=== PATIENT | male | born 1940 | race Caucasian/White ===

== ENCOUNTER → 2019-07-17 10:38 | Outpatient (CLI) | payer MEDICARE, BC | END | disposition home or self-care (01) | LOC: D.HCCARDIO 10:30 | PROVIDERS: ATTEND Internal Medicine Cardiovascular Disease | DX: I20.9 Angina pectoris, unspecified (principal) ==

== ENCOUNTER 2019-08-06 07:27 | Outpatient (CLI) | payer MEDICARE, BC ==
[~2019-08-06] VITALS: Ht 177.8 cm; Wt 94.5 kg
--- NOTE | ~2019-08-06 | HEMODYNAMI ---
PATIENT:MASOUD XIONG MEDICAL RECORD: [id number] : 36 LOCATION:[facility] ADMISSION DATE: 08/06/19 Generatedon:08/06/201910:33 Patient name: MASOUD XIONG Patient #: [id number] SSN: [id number] : 1940 Date of study: 08/06/2019 Page: Of Hemodynamic Procedure Report Patient Data Patient Demographics Procedure consent was obtained First Name: MASOUD Gender: Male Last Name: INGA : 1940 Middle Initial: C Age: 79 year(s) Patient #: [id number] Race: SSN: [id number] Additional ID: [id number] Contact details Address: [address] [place] [address] State: [place] City: [place] Zip code: [address] Past Medical History Performed procedures and imaging results Date Procedure Procedure Results Comments 07/17/2019 Stress testing Positive->Intermediate with SPECT MPI risk Allergies: No known allergies Admission Admission Data Admission Date: 08/06/2019 Admission Time: 7:27 Admit Source: Other Insurance Payor: Private health insurance, Medicare [facility] #: [id number] Height (in.): 69.69 BSA: 2.11 (m2) Height (cm.): 177 BMI: 30 (kg/m2) Weight (lbs.): 207.24 Weight (kg.): 94 Lab Results Lab Result Date: 08/06/2019 Lab Result Time: 7:55 Biochemistry Name Units Result Min Max BUN mg/dl 30 --(----)-* 7 18 Creatinine mg/dl 0.9 --(-*--)-- 0.6 1.3 CBC Name Units Result Min Max Hematocrit % 45 --(*---)-- 42 54 Hemoglobin g/dl 15.1 --(-*--)-- 13.5 17.5 Procedure Procedure Types Cath Procedure Diagnostic Procedure [facility] w/Coronaries Aortic Root Angiography Sedation Charges Moderate Sedation up to 15 minutes Procedure Description Procedure Date Procedure Date: 08/06/2019 Procedure Start Time: 10:08 Procedure End Time: 10:30 Procedure Staff Name Function Jus Howard MD Performing Physician Rambo Valencia RT Monitor Ana Kennedy RT Scrub Gabriel Mancuso RN Nurse Procedure Data Cath Procedure Fluoroscopy Diagnostic fluoroscopy Total fluoroscopy Time: 4.6 time: 4.6 min min Diagnostic fluoroscopy Total fluoroscopy dose: dose: 1006 mGy 1006 mGy Contrast Material Contrast Material Type Amount (ml) Isovue 300 87 Entry Location Entry Primary Successful Side Size Upsize Upsize Entry Closure Fortune ccessful Closure Location (Fr) 1 (Fr) 2 (Fr) Remarks Device Remarks Radial Right 6 Fr Mechanical artery Short Compression Femoral Right 5 Fr Exoseal artery Estimated blood loss: 5 ml Diagnostic catheters Device Type Used For End Catheter Placement DIAGNOSTIC Reji 110cm Procedure 5Fr catheter ([id number]) MULTIPACK JL 4.0 5Fr Procedure catheter DIAGNOSTIC JL 5 5Fr Procedure catheter ([id number]) MULTIPACK 3DRC 5Fr Procedure catheter MULTIPACK Pigtail 5 Fr Procedure catheter Procedure Complications No complications Procedure Medications Medication Administration Route Dosage 0.9% NaCl I.V. 100 ml/hr Oxygen etCO2 Nasal cannula 2 l/min Heparin Flush Bag added to field 2 bags (1000units/500ml NS) Lidocaine 2% added to field 20 Radial Cocktail added to field 1 syringe (Verapamil 2mg/Nitro 400mcg/Heparin 1500units) Versed I.V. 2 mg Fentanyl I.V. 100 mcg Radial Cocktail I.A. 1 syringe (Verapamil 2mg/Nitro 400mcg/Heparin 1500units) Hemodynamics Rest BSA: 2.11 (m2) HGB: 15.1 (g/dl) O2 Consumption: Estimated: 225.59 (ml/min) O2 Co nsumption indexed: Estimated:106.91 (ml/min/m) Heart Rate: 51 (bpm) Pressure Samples Time Site Value (mmHg) Purpose Heart Use Rate(bpm) 10:21 LV 83/10,0 Snapshot 57 10:21 LV 116/-4,10 Snapshot 52 10:21 LV 118/-3,12 Snapshot 59 Gradients Valve Time Site Site Mean SEP/DFP Peak To Heart Use 1 2 (mmHg) (sec/min) Peak Rate (mmHg) (bpm) Aortic 10:21 LV AO 53 Snapshots Pre Cath Intra NCS Post Cath Vital Signs Time Heart Resp SPO2 etCO2 NIBP (mmHg) Rhythm Pain Sedation Rate (ipm) (%) (mmHg) Status Level (bpm) 9:40:38 53 12 99 37.4 120/76(92) NSR 0 (11) 10(A) , No pain 9:44:43 53 18 98 0 118/75(92) NSR 0 (11) 10(A) , No pain 9:48:47 55 17 97 37.4 117/73(100) NSR 0 (11) 10(A) , No pain 9:52:53 56 18 96 44.8 112/69(91) NSR 0 (11) 10(A) , No pain 9:56:54 55 17 96 36.6 115/75(92) NSR 0 (11) 10(A) , No pain 10:00:58 57 12 96 38.1 123/72(99) NSR 0 (11) 10(A) , No pain 10:05:06 56 13 96 39.6 119/69(89) NSR 0 (11) 10(A) , No pain 10:09:10 55 11 95 0 117/76(95) NSR 0 (11) 9(A) , No pain 10:13:20 55 17 92 0 103/60(91) NSR 0 (11) 9(A) , No pain 10:17:23 56 17 92 2.2 109/58(80) NSR 0 (11) 9(A) , No pain 10:21:27 57 17 93 0 114/67(96) NSR 0 (11) 9(A) , No pain 10:25:37 56 12 95 40.4 104/54(77) NSR 0 (11) 9(A) , No pain 10:29:37 52 18 96 30.6 104/55(85) NSR 0 (11) 9(A) , No pain Medications Time Medication Route Dose Verified Delivered Reason Notes Effectiveness by by 9:41:27 0.9% NaCl I.V. 100 Gabriel Gabriel Per ml/hr Bartolome Mancuso physician RN RN 9:41:35 Oxygen etCO2 2 l/min Gabriel Gabriel for low 02 Nasal Bartolome Mancuso sats cannula RN RN 9:41:46 Heparin Flush added 2 bags Gabriel Gabriel used for Bag to Lorigan Bartolome procedure (1000units/500ml field RN RN NS) 9:41:54 Lidocaine 2% added 20ml Gabriel Gabriel for local to vial Lorigan Lorigan anesthetic RN RN 9:42:04 Radial Cocktail added 1 Gabriel Gabriel used for (Verapamil to syringe Lorigan Lorigan procedure 2mg/Nitro field RN RN 400mcg/Heparin 1500units) 10:04:46 Versed I.V. 2 mg Gabriel Gabriel for sedation Bartolome Mancuso RN RN 10:04:54 Fentanyl I.V. 100 mcg Gabriel Gabriel for sedation Bartolome Mancuso RN RN 10:09:08 Radial Cocktail I.A. 1 Gabriel Jus for (Verapamil syringe Evelinaigan Howard MD vasodilation 2mg/Nitro RN 400mcg/Heparin 1500units) Procedure Log Time Note 8:57:14 Informed consent obtained and on chart 8:57:31 Procedure Status Elective Heart Cath (OP). 8:57:33 Time tracking: Regular hours (M-F 7:00 - 5:00) 8:57:36 Plan of Care:Hemodynamics will remain stable., Cardiac rhythm will remain stable., Comfort level will be maintained., Respiratory function will remain adequate., Patient/ family verbilizes understanding of procedure., Procedure tolerated without complication., Recovers from procedure without complications.. 9:03:09 Admit Source: Other 9:03:10 Insurance Payor : Private health insurance, Medicare 9:05:15 Patient Height : 69.69 inches 9:05:17 Patient Weight : 207.24 lbs 9:06:30 Lab Result : Hemoglobin 15.1 g/dl 9:06:30 Lab Result : Creatinine 0.9 mg/dl 9:06:30 Lab Result : BUN 30 mg/dl 9:06:30 Lab Result : Hematocrit 45 % 9:06:50 Diagnostic Cath Status : Elective 9:09:36 Patient allergic to No known allergies 9:12:54 ACC Patient presents with Symptoms unlikely to be ischemic CCS Anginal Class 2--Slight limitation of ordinary activity. 9:15:47 H&P Date Dictated: 07/15/2019 Within 30 days and on chart., H&P Addendum completed by physician on day of procedure. (MUST COMPLETE FOR ALL OUTPATIENTS). 9:25:03 Gabriel Mancuso RN sent for patient. Start room use. 9:33:49 Patient received from Pre/Post Procedure Room to CCL 2 Alert and oriented. Tansferred to table in Supine position. 9:33:50 Warm blankets applied, and dane hugger turned on for patient comfort. 9:33:50 Correct patient and procedure confirmed by team. 9:33:51 ECG and BP/O2 sat monitors applied to patient. 9:39:31 Vital chart was started 9:39:32 Baseline sample Acquired. 9:39:36 Rhythm: sinus bradycardia 9:39:37 Full Disclosure recording started 9:39:40 Pre-procedure instructions explained to patient. 9:39:41 Pre-op teaching completed and patient verbalized understanding. 9:39:42 Family in patients room. 9:39:44 Patient NPO since Midnight. 9:39:45 Is the patient allergic to Iodine/contrast media? No. 9:39:46 Is patient on blood thinner?No 9:41:27 0.9% NaCl 100 ml/hr I.V. was administered by Gabriel Mancuso RN; Per physician; Verbal order read back and verified. 9:41:35 Oxygen 2 l/min etCO2 Nasal cannula was administered by Gabrile Mancuso RN; for low 02 sats; Verbal order read back and verified. 9:41:46 Heparin Flush Bag (1000units/500ml NS) 2 bags added to field was administered by Gabriel Mancuso RN; used for procedure; Verbal order read back and verified. 9:41:54 Lidocaine 2% 20ml vial added to field was administered by Gabriel Mancuso RN; for local anesthetic; Verbal order read back and verified. 9:42:04 Radial Cocktail (Verapamil 2mg/Nitro 400mcg/Heparin 1500units) 1 syringe added to field was administered by Gabriel Mancuso RN; used for procedure; Verbal order read back and verified. 9:51:11 Baseline sample Acquired. 9:51:19 ACC The patient was administered the following blood thiners within the last 24 hours: None 9:51:26 Bleeding risk 3.5%%. 9:51:27 Patient diabetic? No. 9:51:30 Previous problem with sedation/anesthesia? No ? 9:51:32 Snore? Yes 9:51:33 Sleep apnea? Yes 9:51:33 Deviated septum? No 9:51:34 Opens mouth fully? Yes 9:51:35 Sticks out tongue? Yes 9:51:36 Airway obstruction? No ? 9:51:38 Dentures? No ? 9:51:42 Pre procedure: right dorsailis pedis pulse 2+ Normal; easily identifiable; not easily obliterated 9:51:44 Modified Royer's test Ulnar > 7 seconds. 9:51:45 Patient pain scale 0/10 ?. 9:51:49 IV patent on arrival in left forearm with 0.9% NaCl at [facility]. 9:51:50 Lab results completed and on chart. 9:51:57 Risk of Mortality: 3.5% 9:52:02 Risk of blood transfusion: 0.6% 9:52:08 Risk of NAINA: 5.3% 9:52:11 Right Radial & Right Groin area was prepped with chlora-prep and draped in sterile fashion 9:52:12 Alarms reviewed by R. N. 9:52:12 Sharps counted by scrub and verified by R.N. 9:52:15 Use device set Radial Dx or PCI 9:52:15 ACIST Syringe (22492) opened to sterile field. 9:52:16 Medline Cath Pack ([id number]) opened to sterile field. 9:52:16 Bag Decanter (2002S) opened to sterile field. 9:52:16 ACIST Hand Control (69038) opened to sterile field. 9:52:17 ACIST Manifold (92124) opened to sterile field. 9:52:17 Tegaderm 4 x 4 (1626W) opened to sterile field. 9:52:18 MBrace Wrist Support ([id number]) opened to sterile field. 9:52:19 NEEDLE Cook 21G 4cm Radial (X53273) opened to sterile field. 9:52:23 EMERALD Guide Wire (402-372) opened to sterile field. 9:52:24 SHEATH 6FR RAIN ([id number]) opened to sterile field. 9:52:38 Zero performed for pressure channel P1 10:03:28 Physician arrived 10:03:31 --------ALL STOP TIME OUT------ 10:03:31 Final Timeout: patient, procedure, and site verified with staff and physician. All members of the team are in agreement. 10:03:32 Right Radial & Right Groin site verified by team. 10:03:36 Fire Safety Assessment: A--An alcohol-based skin anteseptic being used preoperatively., C--Open oxygen or nitrous oxide is being used., D--An ESU, laser, or fiber-optic light is being used. 10:03:38 Physical assessment completed. ASA score P 2 - A patient with mild systemic disease as per Jus Howard MD. 10:03:49 2) 60-89 Mildly reduced kidney function, and other findings (as for stage 1) point to kidney disease. 10:04:30 Maximum allowable contrast dose (3.7 X eGFR X 0.75)238 ml. 10:04:33 Sedation plan: IV Moderate Sedation Medication:Versed, Fentanyl 10:04:46 Versed 2 mg I.V. was administered by Gabriel Mancuso RN; for sedation; Verbal order read back and verified. 10:04:54 Fentanyl 100 mcg I.V. was administered by Gabriel Mancuso RN; for sedation; Verbal order read back and verified. 10:08:32 Procedure started. 10:08:58 Local anesthetic to right radial artery with Lidocaine 2% by Jus Howard MD.INITIAL ACCESS ONLY 10:09:05 A 6 Fr Short sheath was inserted into the Right Radial artery 10:09:08 Radial Cocktail (Verapamil 2mg/Nitro 400mcg/Heparin 1500units) 1 syringe I.A. was administered by Jus Howard MD; for vasodilation; Verbal order read back and verified. 10:09:31 A DIAGNOSTIC Reji 110cm 5Fr catheter (299690) was advanced over the wire and used for Procedure. 10:13:07 Curve in aorta too torturous for catheter. Moiving to femoral approach. 10:13:09 Catheter removed. 10:13:12 Local anesthetic to right femoral artery with Lidocaine 2% by Jus Howard MD.ADDITIONAL ACCESS 10:13:18 A 5 Fr sheath was inserted into the Right Femoral artery 10:13:37 DIAGNOSTIC Multipack 5Fr catheter set ([id number]) opened to sterile field. 10:13:39 SHEATH 5FR [place] (MSX266) opened to sterile field. 10:13:56 A MULTIPACK JL 4.0 5Fr catheter was advanced over the wire and used for Procedure. 10:15:37 Catheter exchanged over wire. 10:15:51 A DIAGNOSTIC JL 5 5Fr catheter ([id number]) was advanced over the wire and used for Procedure. 10:16:05 LCA angiography performed. 10:18:22 Catheter exchanged over wire. 10:18:49 A MULTIPACK 3DRC 5Fr catheter was advanced over the wire and used for Procedure. 10:19:31 RCA angiography performed. 10:19:41 Catheter exchanged over wire. 10:19:56 A MULTIPACK Pigtail 5 Fr catheter was advanced over the wire and used for Procedure. 10:21:26 LV gram done using CARIAS 10::28 Injector settings: Ml/sec: 10, Volume: 20, 10:21:30 LV hemodynamics recorded. 10:21:34 EF : 60 % 10:22:09 Aortic Root visualized 10:26:14 Catheter removed. 10:26:21 EXOSEAL 5Fr (EX500) opened to sterile field. 10:26:24 ZEPHYR REGULAR TR BAND (478140) opened to sterile field. 10:26:35 Sheath removed intact; hemostasis achieved with Exoseal to the Right Femoral artery. 10:26:42 Sheath removed intact; hemostasis achieved with Mechanical Compression to the Right Radial artery. 10:26:43 Procedure ended.(Physican Out) 10:27:07 Fluoroscopy time 04.60 minutes. 10:27:12 Fluoroscopy dose: 1006 mGy 10:27:12 Flurop Dose total: 1006 10:27:20 Dose Area Product 12179 mGy/cm. 10:27:27 Contrast amount:Isovue 300 87ml. 10:27:29 Maximum allowable dose exceeded? No. 10:27:30 Sharps counted by scrub and verified by R.N. 10:27:32 [place] band inflated with 12cc of air. 10:27:33 Insertion/operative site no bleeding no hematoma. 10:27:33 Insertion/operative site no bleeding no hematoma. 10:27:36 Post-op/insertion site Right Femoral artery dressed using a 4 x 4 and Tegaderm. 10:28:32 Post Procedure Pulses reassessed and unchanged 10:28:34 Post-procedure physical assessment completed. ASA score P 2 - A patient with mild systemic disease as per Jus Howard MD. 10:28:36 Post procedure rhythm: unchanged. 10:28:38 Estimated blood loss: 5 ml 10:28:39 Post procedure instruction explained to patient.Patient verbalizes understanding. 10:28:40 Patient needs reinforcement of post procedure teaching. 10:28:55 Procedure type changed to Cath procedure, Diagnostic procedure, LHC, [facility] w/Coronaries, Aortic Root Angiography, Sedation Charges, Moderate Sedation up to 15 minutes 10:30:13 Procedure and supply charges have been captured, reviewed, submitted and are correct. 10:30:16 Procedure Complication : No complications 10:30:18 Vital chart was stopped 10:30:21 [facility] Findings: MVD- will discuss options w/ pt 10:30:22 Operative report dictated upon procedure completion. 10:30:24 See physician's report for complete and final results. 10:30:25 Report given to Pre/Post Procedure Room. 10:30:27 Patient transfered to Pre/Post Procedure Room with Stretcher. 10:30:30 Procedure ended. 10:30:30 Full Disclosure recording stopped 10:30:38 End room use (Document Last) 10:32:05 End room use (Document Last) Device Usage Item Name Manufacture Quantity Catalog Hospital Part Current Minima l Lot# / Number Charge Number Stock Stock Serial# Code ACIST Acist 1 48809 612813 609951 094319 20 Syringe Medical (59742) Systems Inc Medline Medline 1 [id number] 380489 94810 180013 5 Cath Pack ([id number]) Bag Microtek 1 2001S 966167 68244 302010 5 Decanter Medical Inc. () ACIST Hand Acist 1 53208 184036 820803 453905 5 Control Medical (58991) Systems Inc ACIST Acist 1 56919 831220 810269 599223 5 Manifold Medical (13979) Systems Inc Tegaderm 4 3M 1 1626W 023305 902164 832741 5 x 4 (1626W) MBrace Advanced 1 140-0250-00 591552 04914 331546 5 Wrist Vascular Support Dynamics ([id number]) NEEDLE LIQUITY Medical 1 W65205 262373 831059 771388 5 21G 4cm Radial (A17963) EMERALD Cardinal 1 502-313 051223 921802 116226 5 Guide Wire [facility] (502-455) SHEATH 6FR Cardinal 1 6893883 926354 1494166 503290 5 [facility] (4138469) DIAGNOSTIC Terumo 1 40-4245 868252 691278 000697 5 Reji 110cm 5Fr catheter (549159) DIAGNOSTIC Cardinal 1 MH6985 932072 99600 013525 30 Multipack Health 5Fr catheter set (EW1499) SHEATH 5FR Terumo 1 RAV106 475325 759966 034345 5 [place] (USN363) MULTIPACK Cardinal 1 727339 5 JL 4.0 5Fr Health catheter DIAGNOSTIC Cardinal 1 [id number] 089636 198807 370335 5 JL 5 5Fr Health catheter (982505I) MULTIPACK Cardinal 1 908955 5 3DRC 5Fr Health catheter MULTIPACK Cardinal 1 880653 5 Pigtail 5 Health Fr catheter EXOSEAL 5Fr Cardinal 1 EX500 383573 204324 952762 10 (EX500) Health ZEPHYR Cardinal 1 815560 406454 3704623 176398 5 REGULAR TR Health BAND (243157) Signature Audit [place] Stage Time Signature Unsigned Intra-Procedure 08/06/2019 Gabriel 10:32:05 SAVAGE Mancuso RN; Rambo Valencia RT(R); Jus Howard MD Signatures Performing Physician : Signature : Jus Howard MD Date : Time : Monitor : Rambo Valencia RT Signature : Date : Time : Nurse : Gabriel Mancuso Signature : RN Date : Time : [facility] [address], [place] [address]
[2019-08-06] MEDS ORDERED: ELAVIL10 MG PO (07:43)
[2019-08-06] MEDS ORDERED: PROSCAR5 MG PO (07:43)
[2019-08-06 07:59] VITALS: BP 130/88; Ht 177.8 cm; Wt 94.5 kg
[2019-08-06 08:09] LABS: BASOPHILS 0.6 % (0-2); EOSINOPHILS 6.5 % (0-7); HEMOGLOBIN 15.1 g/dL (13.5-17.5); IMMATURE GRANULOCYTES 0.2 % (0-5); LYMPHOCYTES 27.5 % (15-50); MCH 32.2 pg (26.0-34.0); MCHC 33.6 g/dL (31.0-37.0); MCV 95.9 fL (80.0-100.0); MEAN PLATELET VOLUME 10.3 fL (7.4-10.4); MONOCYTES 14.9 % (2-11); NEUTROPHILS 50.3 % (40-80); PLATELET COUNT 211 10x3/uL (130-400); RBC 4.69 10x6/uL (4.20-6.10); RDW 13.1 % (11.5-14.5); WBC 5.4 10x3/uL (4.8-10.8)
[2019-08-06 08:28] LABS: ALT (SGPT) 26 U/L (10-68); CALC OSMOLALITY 284 mosm/kg (275-300); CALCIUM 9.6 mg/dL (8.5-10.1); CARBON DIOXIDE 26.8 mmol/L (21.0-32.0); CHLORIDE - SERUM 106 mmol/L (98-107); CHOL - HDL RATIO 4.1 ratio (2.3-4.9); CHOLESTEROL, TOTAL 218 mg/dL (0-200); CREATININE - SERUM 0.9 mg/dL (0.6-1.3); GLUCOSE 101 mg/dL (74-106); HDL CHOLESTEROL 53 mg/dL (32-96); LDL CHOLESTEROL 151 mg/dL (0-100); LDL-HDL RATIO 2.8 ratio (1.5-3.5); POTASSIUM - SERUM 4.3 mmol/L (3.5-5.1); SODIUM 140 mmol/L (136-145); TRIGLYCERIDE 71 mg/dL (30-200); UREA NITROGEN 30 mg/dL (7-18); eGFR NON AFRICAN AMERICAN 86 mL/min (90-120)
--- NOTE | 2019-08-06 10:45 | NUR ---
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 MONITORS ESTAB, PT ORIENTED TO SITUATION BY NURSE. SEE ADJUNCT PROFESSOR OF ENGLISH. ALARMS ON AND C/L IN REACH.
--- NOTE | 2019-08-06 11:00 | NUR ---
R WRIST AND R GROIN SITES C/D/I, NO S/S BLEEDING. R HANDS/FEET WARM WITH PALP PULSES AND BRISK CAP REFILL. PT RESTING QUIETLY, DENIES PAIN OR NEEDS. ALARMS ON AND C/L IN REACH.
--- NOTE | 2019-08-06 11:45 | NUR ---
R GROIN AND WRIST SITES C/D/I, NO S/S BLEEDING OR HEMATOMA. HOB ELEVATED, SANDWICH TRAY AND DIET COLA PROVIDED.
--- NOTE | 2019-08-06 12:00 | NUR ---
SPOKE WITH PT TITUS JACKSON, UPDATE GIVEN, D/C INSTRUCTIONS AND FOLLOW UP APPT INFO PROVIDED. PLAN FOR PT D/C AT 4245.
--- NOTE | 2019-08-06 12:04 | NUR ---
PT ATE ALL OF SANDWICH, NO N/V. BOTH R GROIN AND R WRIST SITES C/D/I, NO S/S BLEEDING OR HEMATOMA. VSS, PT DENIES PAIN OR NEEDS.
--- NOTE | 2019-08-06 12:30 | NUR ---
R GROIN SITE SOFT, C/D/I. R WRIST SITE C/D/I - 5CC AIR REMOVED, NO S/S BLEEDING - WILL CONT CLOSE MONITORING.
--- NOTE | 2019-08-06 12:47 | NUR ---
ALL AIR REMOVED FROM Z BAND, NO S/S BLEEDING OR HEMATOMA. DR CHERRY ORDERED ECHO PRIOR TO D/C - TEASY NOTIFIED.
--- NOTE | 2019-08-06 13:11 | NUR ---
ECHO IN PROCESS.
--- NOTE | 2019-08-06 13:35 | NUR ---
ECHO DONE. R GROIN SITE AND R WRIST SITE WITH NO S/S BLEEDING OR HEMATOMA. PIV D/C'D INTACT, DSG APPLIED. PT UP TO GET DRESSED AND GO TO BR INDEPENDENTLY.
--- NOTE | 2019-08-06 13:45 | NUR ---
PT D/C'D TO PRIVATE VEHICLE WITH SONS. ALL D/C INSTRUCTIONS REVIEWED, FAMILY VERBALIZES UNDERSTANDING OF RESTRICTIONS, PRECAUTIONS AND FOLLOW UP APPT. PT HAS ALL BELONGINGS AND PAPER WORK.
== END 2019-08-06 13:45 | disposition home or self-care (01) ==
LOC: D.CATH 07:27
PROVIDERS: ATTEND Internal Medicine Cardiovascular Disease
DX: R53.83 Other fatigue (principal); I20.9 Angina pectoris, unspecified; R42 Dizziness and giddiness

== ENCOUNTER 2019-09-02 11:24 | Outpatient (CLI) | payer MEDICARE, BC ==
[~2019-09-02] VITALS: Ht 177.8 cm; Wt 93.6 kg
--- NOTE | ~2019-09-02 | HEMODYNAMI ---
PATIENT:MASOUD XIONG MEDICAL RECORD: [id number] : 36 LOCATION:[facility] ADMISSION DATE: 09/02/19 Generatedon:09/02/201915:40 Patient name: MASOUD XIONG Patient #: [id number] SSN: [id number] : 1940 Date of study: 09/02/2019 Page: Of Hemodynamic Procedure Report Patient Data Patient Demographics Procedure consent was obtained First Name: MASOUD Gender: Male Last Name: INGA : 1940 Middle Initial: C Age: 79 year(s) Patient #: [id number] Race: SSN: [id number] Additional ID: [id number] Contact details [address]: [address] [place] [address] State: [place] City: [place] Zip code: [address] Past Medical History Allergies: No known allergies Admission Admission Data Admission Date: 09/02/2019 Admission Time: 11:24 Procedure Procedure Types Cath Procedure Diagnostic Procedure LHC Sedation Charges Moderate Sedation up to 45 minutes PCI Procedure Coronary Stent Coronary Stent Initial Hemochron ACT Test Procedure Description Procedure Date Procedure Date: 09/02/2019 Procedure Start Time: 14:41 Procedure End Time: 15:37 Procedure Staff Name Function Jus Howard MD Performing Physician Kayla Ritter RT Monitor Shelley Verdugo RT Scrub Ana Kennedy RT Ore Feeder Vero Haley RN Nurse Indication Angina Procedure Data Cath Procedure Fluoroscopy Diagnostic fluoroscopy Total fluoroscopy Time: time: 13.2 min 13.2 min Diagnostic fluoroscopy Total fluoroscopy dose: dose: 1917 mGy 1917 mGy Contrast Material Contrast Material Type Amount (ml) Isovue 370 165 Entry Location Entry Primary Successful Side Size Upsize 1 Upsize Entry Closure Fortune ccessful Closure Location (Fr) (Fr) 2 (Fr) Remarks Device Remarks Femoral Right 6 Fr 6 Fr 6 Fr Exoseal artery Short Mid-Length Short Estimated blood loss: 10 ml Procedure Complications No complications Procedure Medications Medication Administration Route Dosage 0.9% NaCl I.V. 100 ml/hr Oxygen etCO2 Nasal cannula 2 l/min Lidocaine 2% added to field 20 Heparin Flush Bag added to field 2 bags (1000units/500ml NS) Versed I.V. 2 mg Fentanyl I.V. 50 mcg Fentanyl I.V. 50 mcg Heparin Bolus I.V. 9500 units Nitroglycerin IC/IA I.C. 100 mcg Nitroglycerin IC/IA I.C. 100 mcg Nitroglycerin IC/IA I.C. 100 mcg Plavix P.O. 600 mg Hemodynamics Rest Heart Rate: 54 (bpm) Snapshots Pre Cath Intra NCS Post Cath Vital Signs Time Heart Resp SPO2 etCO2 NIBP (mmHg) Rhythm Pain Sedation Rate (ipm) (%) (mmHg) Status Level (bpm) 14:27:01 52 12 99 17 136/86(99) SB 0 (11) 10(A) , No pain 14:31:17 54 13 100 34.6 132/84(101) SB 0 (11) 10(A) , No pain 14:36:14 55 13 100 34 127/78(102) SB 0 (11) 10(A) , No pain 14:40:24 56 12 100 33.9 135/89(101) SB 0 (11) 10(A) , No pain 14:44:42 54 14 100 23.3 134/80(97) SB 0 (11) 10(A) , No pain 14:48:55 55 15 100 35 131/85(101) SB 0 (11) 10(A) , No pain 14:53:03 60 15 100 38.4 121/80(95) NSR 0 (11) 9(A) , No pain 14:57:15 61 16 98 29.3 118/77(92) NSR 0 (11) 9(A) , No pain 15:01:25 60 12 99 24.1 133/82(94) NSR 0 (11) 9(A) , No pain 15:05:39 52 10 100 36.9 131/81(97) SB 0 (11) 9(A) , No pain 15:10:34 52 14 100 36.9 137/79(101) SB 0 (11) 9(A) , No pain 15:14:50 54 10 100 21.8 132/83(97) SB 0 (11) 9(A) , No pain 15:19:02 50 18 100 35.4 123/82(95) SB 0 (11) 9(A) , No pain 15:23:16 49 16 99 34.6 129/76(96) SB 0 (11) 9(A) , No pain 15:27:30 53 15 99 38.4 121/79(96) SB 0 (11) 9(A) , No pain 15:31:44 50 15 99 33.1 126/74(106) SB 0 (11) 10(A) , No pain 15:35:56 53 7 99 38.4 126/76(97) SB 0 (11) 10(A) , No pain Medications Time Medication Route Dose Verified Delivered Reason Notes Effectiveness by by 14:24:24 0.9% NaCl I.V. 100 Jus Vero used for ml/hr Lee Haley scullion chief 14:24:32 Oxygen etCO2 2 Jus Vero used for Nasal l/min Lee Haley procedure cannula RN 14:24:38 Lidocaine 2% added 20ml Jus Jus for local to vial Lee Howard MD anesthetic field 14:24:42 Heparin Flush added 2 Jus Jus used for Bag to bags Lee Howard MD procedure (1000units/500ml field NS) 14:41:09 Versed I.V. 2 mg Jus Vero for sedation Lee Haley RN 14:41:14 Fentanyl I.V. 50 Jus Vero for sedation mcg Lee Haley RN 14:47:31 Fentanyl I.V. 50 Jus Vero for sedation mcg Lee Haley RN 14:52:25 Heparin Bolus I.V. 9500 Jus Vero for verif ied units Lee Haley anticoagulation with Dr. PELON Howard 14:52:45 Nitroglycerin I.C. 100 Jus Vero for IC/IA mcg Lee Haley vasodilation RN 15:16:34 Nitroglycerin I.C. 100 Jus Vero for IC/IA mcg Lee Haley vasodilation RN 15:25:06 Nitroglycerin I.C. 100 Jus Vero for IC/IA mcg Lee Haley vasodilation RN 15:35:36 Plavix P.O. 600 Jus Vero for mg Lee Haley antiplatelet RN therapy Procedure Log Time Note 14:15:22 Ana Kennedy RT(R) sent for patient. Start room use. 14:17:16 Informed consent obtained and on chart 14:18:13 Indication : Angina 14:18:19 Time tracking: Regular hours (M-F 7:00 - 5:00) 14:18:32 Procedure Status PCI. 14:18:43 Plan of Care:Hemodynamics will remain stable., Cardiac rhythm will remain stable., Comfort level will be maintained., Respiratory function will remain adequate., Patient/ family verbilizes understanding of procedure., Procedure tolerated without complication., Recovers from procedure without complications.. 14:19:09 Patient received from Pre/Post Procedure Room to CCL 1 Alert and oriented. Tansferred to table in Supine position. 14:23:48 Warm blankets applied, and dane hugger turned on for patient comfort. 14:23:49 Correct patient and procedure confirmed by team. 14:23:50 ECG and BP/O2 sat monitors applied to patient. 14:23:51 Vital chart was started 14:23:54 Baseline sample Acquired. 14:23:58 Rhythm: sinus rhythm 14:24:01 Full Disclosure recording started 14:24:23 H&P Date Dictated: 08/06/2019 Within 30 days and on chart., H&P Addendum completed by physician on day of procedure. (MUST COMPLETE FOR ALL OUTPATIENTS). 14:24:24 Pre-procedure instructions explained to patient. 14:24:24 0.9% NaCl 100 ml/hr I.V. was administered by Vero Haley RN; used for procedure; Verbal order read back and verified. 14:24:26 Pre-op teaching completed and patient verbalized understanding. 14:24:28 Family in patients room. 14:24:30 Patient NPO since Midnight. 14:24:32 Oxygen 2 l/min etCO2 Nasal cannula was administered by Vero Haley RN; used for procedure; Verbal order read back and verified. 14:24:38 Lidocaine 2% 20ml vial added to field was administered by Jus Howard MD; for local anesthetic; Verbal order read back and verified. 14:24:39 Patient allergic to No known allergies 14:24:42 Heparin Flush Bag (1000units/500ml NS) 2 bags added to field was administered by Jus Howard MD; used for procedure; Verbal order read back and verified. 14:24:43 Is the patient allergic to Iodine/contrast media? No. 14::46 Was the patient premedicated? Yes 14:24:57 Is patient on blood thinner?No 14:25:04 Patient diabetic? No. 14:25:16 Snore? Yes 14:25:29 Sleep apnea? No 14:25:37 Dentures? No ? 14:25:44 Patient pain scale 0/10 ?. 14:: Lab results completed and on chart. 14::18 Right groin area was prepped with chlora-prep and draped in sterile fashion 14:: Alarms reviewed by R. N. 14:: Sharps counted by scrub and verified by R.N. 14:: Physician paged 14:40:24 Physician arrived 14:40:25 Final Timeout: patient, procedure, and site verified with staff and physician. All members of the team are in agreement. 14::25 --------ALL STOP TIME OUT------ 14:40:31 Right groin site verified by team. 14:40:36 Fire Safety Assessment: A--An alcohol-based skin anteseptic being used preoperatively., C--Open oxygen or nitrous oxide is being used., D--An ESU, laser, or fiber-optic light is being used. 14:40:41 Physical assessment completed. ASA score P 3 - A patient with severe systemic disease as per Jus Howard MD. 14:40:44 2) 60-89 Mildly reduced kidney function, and other findings (as for stage 1) point to kidney disease. 14:40:49 Maximum allowable contrast dose (3.7 X eGFR X 0.75)211 ml. 14:40:54 Sedation plan: IV Moderate Sedation Medication:Versed, Fentanyl 14:41:02 Use device set Femoral Dx 14:41:07 Procedure started. 14:41:09 Versed 2 mg I.V. was administered by Vero Haley RN; for sedation; Verbal order read back and verified. 14:41:12 Local anesthetic to right femoral artery with Lidocaine 2% by Jus Howard MD.INITIAL ACCESS ONLY 14:41:14 Fentanyl 50 mcg I.V. was administered by Vero Haley RN; for sedation; Verbal order read back and verified. 14:41:36 A 6 Fr Short sheath was inserted into the Right Femoral artery 14:41:38 ACIST Syringe (37654) opened to sterile field. 14:41:39 Bag Decanter (2002) opened to sterile field. 14:41:44 ACIST Manifold (99714) opened to sterile field. 14:41:44 ACIST Hand Control (86842) opened to sterile field. 14:41:48 Medline Cath Pack ([id number]) opened to sterile field. 14:41:49 Tegaderm 4 x 4 (1626W) opened to sterile field. 14:41:52 EMERALD Guide Wire (502-710) opened to sterile field. 14:42:23 SHEATH 6FR [place] (OOB389) opened to sterile field. 14:42:24 TUBING High Pressure Extension Tubing (Lee) ([id number]) opened to sterile field. 14:42:25 BMW 300cm [place] 2 J wire ([id number]) opened to sterile field. 14:42:25 INFLATOR Merit BasixCompak (SN4885) opened to sterile field. 14:42:32 GUIDE 6FR XBLAD 3.5 catheter (02622880) opened to sterile field. 14:42:39 J wire advanced. 14:45:00 SHEATH 6FR Destination (RSR01) opened to sterile field. 14:45:21 Sheath upsized to a 6 Fr Mid-Length. 14:47:31 Fentanyl 50 mcg I.V. was administered by Vero Haley RN; for sedation; Verbal order read back and verified. 14:49:36 GUIDE 6FR XBLAD 4.0 catheter (79745600) opened to sterile field. 14:49:48 6 Fr xblad4 guide catheter was inserted over the wire 14:49:54 Wire advanced across lesion. 14:52:25 Heparin Bolus 9500 units I.V. was administered by Vero Haley RN; for anticoagulation; verified with Dr. Howard Verbal order read back and verified. 14:52:45 Nitroglycerin IC/IA 100 mcg I.C. was administered by Vero Haley RN; for vasodilation; Verbal order read back and verified. 15:00:45 Place stent Inflation Number: 1 A JJ OTW 2.5 x 15 stent ([id number]) was prepped and advanced across the Mid LAD 80. The stent was deployed at 13 JOI for 0:12 (min:sec) . 15:12:53 Place stent Inflation Number: 1 A JJ OTW 3.0 x 12 stent ([id number]) was prepped and advanced across the Prox LAD 80. The stent was deployed at 8 JOI for 0:24 (min:sec) 0. 15:16:34 Nitroglycerin IC/IA 100 mcg I.C. was administered by Vero Haley RN; for vasodilation; Verbal order read back and verified. 15:24:08 Place stent Inflation Number: 1 A JJ OTW 3.5 x 15 stent ([id number]) was prepped and advanced across the Prox LAD1 80. The stent was deployed at 12 JOI for 0:20 (min:sec) 0. 15:25:05 Nitroglycerin IC/IA 100 mcg I.C. was administered by Vero Haley RN; for vasodilation; Verbal order read back and verified. 15:32:00 EXOSEAL 6Fr (EX600) opened to sterile field. 15:32:09 Wire removed. 15:32:13 Guide catheter removed. 15:32:46 Sheath removed intact; hemostasis achieved with Exoseal to the Right Femoral artery. 15:32:46 Sheath upsized to a 6 Fr Short. 15:32:48 Procedure ended.(Physican Out) 15:33:09 Fluoroscopy time 13.20 minutes. 15:33:17 Fluoroscopy dose: 1917 mGy 15:33:17 Flurop Dose total: 1917 15:33:25 Dose Area Product 71045 mGy/cm. 15:33:32 Contrast amount:Isovue 370 165ml. 15:33:44 Maximum allowable dose exceeded? No. 15:33:53 Insertion/operative site no bleeding no hematoma. 15:33:58 Post-op/insertion site Right Femoral artery dressed using a 4 x 4 and Tegaderm. 15:34:03 Post Procedure Pulses reassessed and unchanged 15:34:14 Post-procedure physical assessment completed. ASA score P 2 - A patient with mild systemic disease as per Jus Howard MD. 15:34:18 Post procedure rhythm: unchanged. 15:34:21 Estimated blood loss: 10 ml 15:34:24 Post procedure instruction explained to patient.Patient verbalizes understanding. 15:35:36 Plavix 600 mg P.O. was administered by Vero Haley RN; for antiplatelet therapy; Verbal order read back and verified. 15:35:42 Procedure type changed to Cath procedure, Diagnostic procedure, LHC, Sedation Charges, Moderate Sedation up to 45 minutes, PCI procedure, Coronary Stent, Coronary Stent Initial, Hemochron ACT Test 15:35:44 Procedure and supply charges have been captured, reviewed, submitted and are correct. 15:36:45 Procedure Complication : No complications 15:36:49 Vital chart was stopped 15:36:53 [facility] Findings: MVD- PCI performed (see procedure note) 15:36:58 Operative report dictated upon procedure completion. 15:36:59 See physician's report for complete and final results. 15:37:04 Report given to Pre/Post Procedure Room. 15:37:18 Patient transfered to Pre/Post Procedure Room with Stretcher. 15:37:20 Full Disclosure recording stopped 15:37:20 Procedure ended. 15:37:25 End room use (Document Last) 15:37:33 ACC-PCI Only Patient was given prescriptions, or instructed by Jus Howard MD to start/continue the following medications upon discharge: Plavix Intervention Summary Intervention Notes Time ActionType Lesion and Equipment Action# Pressure Duration Attributes Used 15:00:45 Place stent Mid LAD JJ OTW 2.5 1 13 00:13 x 15 stent ([id number]) 15:12:53 Place stent Prox LAD JJ OTW 3.0 1 8 00:24 x 12 stent ([id number]) 15:24:08 Place stent Prox LAD1 JJ OTW 3.5 1 12 00:20 x 15 stent ([id number]) Device Usage Item Name Manufacture Quantity Catalog Hospital Part Current Mini mal Lot# / Number Charge Number Stock Stock Serial# Code ACIST Syringe Acist 1 18396 891017 768589 339471 20 (52731) Medical Systems Inc Bag Decanter Microtek 1 965387 26846 653562 5 () Medical Inc. ACIST Hand Acist 1 62121 973473 041066 818725 5 Control Medical (61742) Systems Inc ACIST Acist 1 43567 167023 931021 949773 5 Manifold Medical (31253) Systems Inc Medline Cath Medline 1 [id number] 864553 89011 919972 5 Pack ([id number]) Tegaderm 4 x 3M 1 1626W 806024 137031 542170 5 4 (1626W) EMERALD Guide Cardinal 1 502-455 230488 084465 119001 5 Wire Health (502-455) SHEATH 6FR Terumo 1 TLH516 985453 623677 508110 40 [place] (AUQ191) TUBING High Merit 1 [id number] 041467 06055 316864 10 Pressure Medical Extension Tubing (Howard) ([id number]) INFLATOR Merit 1 IY9260 458746 645843 096595 15 LED Optics Medical BasixCompak (XZ4106) BMW 300cm [place] 1 [id number] 630253 422598 373450 5 [place] 2 J Vascular wire (9227063B) GUIDE 6FR Cardinal 1 [id number] 554643 198511 231410 10 XBLAD 3.5 Health catheter (39017604) SHEATH 6FR Terumo 1 RSR01 596057 44299 933717 5 Destination (RSR01) GUIDE 6FR Cardinal 1 [id number] 760945 795404 830921 3 XBLAD 4.0 Health catheter (69732760) JJ OTW 2.5 Medtronic 1 [id number] 893491 58202 421910 5 [id number] x 15 stent ([id number]) JJ OTW 3.0 Medtronic 1 [id number] 139455 7188278 426312 5 [id number] x 12 stent ([id number]) JJ OTW 3.5 Medtronic 1 [id number] 214164 7666337 827735 5 [id number] x 15 stent ([id number]) EXOSEAL 6Fr Cardinal 1 EX600 844622 310821 595538 10 (EX600) Health Signature Audit [place] Stage Time Signature Unsigned Intra-Procedure 09/02/2019 Kayla Ritter 3:37:47 PM RT(R) Intra-Procedure 09/02/2019 Vero Haley 3:38:06 PM RN Intra-Procedure 09/02/2019 Jus Howard MD 3:39:49 PM Intra-Procedure 09/02/2019 Jus Howard MD 3:40:17 PM [facility] [address] [place] [address]
[~2019-09-02 11:24] MED LIST: ELAVIL10 MG PO; PROSCAR5 MG PO
[2019-09-02 12:16] VITALS: BP 144/70; Ht 177.8 cm; Wt 93.6 kg
[2019-09-02 12:45] LABS: ALT (SGPT) 29 U/L (10-68); CALC OSMOLALITY 278 mosm/kg (275-300); CALCIUM 9.6 mg/dL (8.5-10.1); CARBON DIOXIDE 30.9 mmol/L (21.0-32.0); CHLORIDE - SERUM 103 mmol/L (98-107); CHOL - HDL RATIO 3.8 ratio (2.3-4.9); CHOLESTEROL, TOTAL 213 mg/dL (0-200); GLUCOSE 96 mg/dL (74-106); HDL CHOLESTEROL 56 mg/dL (32-96); LDL CHOLESTEROL 142 mg/dL (0-100); LDL-HDL RATIO 2.5 ratio (1.5-3.5); POTASSIUM - SERUM 4.2 mmol/L (3.5-5.1); SODIUM 138 mmol/L (136-145); TRIGLYCERIDE 76 mg/dL (30-200); UREA NITROGEN 21 mg/dL (7-18); eGFR NON AFRICAN AMERICAN 76 mL/min (90-120)
[2019-09-02 13:02] LABS: HEMATOCRIT 45.5 % (42.0-54.0); HEMOGLOBIN 15.3 g/dL (13.5-17.5); LYMPHOCYTES 24.5 % (15-50); MCH 31.5 pg (26.0-34.0); MCHC 33.6 g/dL (31.0-37.0); MCV 93.8 fL (80.0-100.0); MEAN PLATELET VOLUME 10.3 fL (7.4-10.4); NEUTROPHILS 63.4 % (40-80); PLATELET COUNT 206 10x3/uL (130-400); RBC 4.85 10x6/uL (4.20-6.10); WBC 5.5 10x3/uL (4.8-10.8)
--- NOTE | 2019-09-02 15:49 | NUR ---
PT ARRIVED BY STRETCHER. PLACED ON MONITORS. ASSESSMENT COMPLETED. VSS AT THIS TIME. FAMILY AT BEDSIDE. CALL LIGHT WITHIN REACH.
[2019-09-02] MEDS ORDERED: BAYER CHEWABLE81 MG PO (16:00)
[2019-09-02] MEDS ORDERED: PLAVIX75 MG PO (16:00)
[2019-09-02] MEDS ORDERED: PRAVACHOL20 MG PO (16:01)
--- NOTE | 2019-09-02 16:04 | NUR ---
PT RESTING COMFORTABLY. VSS. CALL LIGHT WITHIN REACH. RIGHT GROIN DRESSING C/D/I. NO S/S OF HEMATOMA NOTED. PT GIVEN WARM BLANKET. DENIES NAUSEA/PAIN AT THIS TIME.
--- NOTE | 2019-09-02 16:16 | NUR ---
CALLED AND SPOKE WITH [facility]. SPOKE WITH GLADYS. CALLED IN RX FOR PLAVIX AND PRAVASTATIN.
--- NOTE | 2019-09-02 16:37 | NUR ---
PT ALERT AND ORIENTED. DENIES NAUSEA/PAIN. RIGHT GROIN DRESSING C/D/I. NO S/S OF HEMATOMA NOTED. PT SET UP WITH DRINK AND SANDWICH TRAY. PT STILL IN SUPINE POSITION. SON AT BEDSIDE TO ASSIST WITH EATING/DRINKING AT THIS TIME.
--- NOTE | 2019-09-02 17:10 | NUR ---
RIGHT GROIN DRESSING C/D/I. NO S/S OF HEMATOMA NOTED. CALL LIGHT WITHIN REACH. PT VOIDED 400cc OF CLEAR YELLOW URINE IN URINAL WITHOUT DIFFICULTY. VSS. NO OTHER NEEDS AT THIS TIME.
--- NOTE | 2019-09-02 17:45 | NUR ---
RIGHT GROIN DRESSING C/D/I. NO S/S OF HEMATOMA NOTED. RIGHT PEDAL PULSE PALPABLE. ALL EXT WARM TO TOUCH. CAP REFILL < 3 SECS X 4 EXT. VSS. CALL LIGHT WITHIN REACH. NO NEEDS AT THIS TIME. FAMILY AT BEDSIDE.
--- NOTE | 2019-09-02 18:30 | NUR ---
RIGHT GROIN DRESSING C/D/I. NO S/S OF HEMATOMA NOTED. CALL LIGHT WITHIN REACH. HEAD OF BED INC TO 30 DEGREES. TOLERATED WELL. VSS AT THIS TIME.
--- NOTE | 2019-09-02 19:14 | NUR ---
RIGHT GROIN DRESSING C/D/I. NO S/S OF HEMATOMA NOTED. PIV D/C'D WITH CATH TIP INTACT. TOLERATED WELL. PT INSTRUCTED TO GET UP AND DRESSED AT THIS TIME. FAMILY AT BEDSIDE TO ASSIST.
--- NOTE | 2019-09-02 19:25 | NUR ---
DISCUSSED DISCHARGE INSTRUCTIONS WITH PT AND PT'S FAMILY. THEY VOICED UNDERSTANDING. PT AMBULATED TO RESTROOM AND VOIDED WITHOUT DIFFICULTY. STEADY GAIT NOTED.
--- NOTE | 2019-09-02 19:30 | NUR ---
PT TAKEN DOWN TO VEHICLE BY WHEELCHAIR. NO S/S OF DISTRESS NOTED. ALL BELONGINGS AND PAPERWORK IN HAND.
== END 2019-09-02 19:30 | disposition home or self-care (01) ==
LOC: D.CATH 11:24
PROVIDERS: ATTEND Internal Medicine Cardiovascular Disease
DX: I25.119 Atherosclerotic heart disease of native coronary artery with unspecified angina pectoris (principal); R94.30 Abnormal result of cardiovascular function study, unspecified